=== PATIENT | female | born 1975 | race Caucasian/White ===

== ENCOUNTER 2022-10-25 19:39 | Emergency (ER) | payer BC ==
[~2022-10-25] VITALS: Ht 157.5 cm; Wt 59.0 kg
[2022-10-25 20:09] VITALS: BP_SYST 139
[2022-10-25 20:49] LABS: BILIRUBIN,URINE NEGATIVE (NEGATIVE); BLOOD, URINE TRACE (NEGATIVE); CLARITY/URINE CLEAR (CLEAR); COLOR,URINE YELLOW (YELLOW); GLUCOSE,URINE NEGATIVE (NEGATIVE); KETONES,URINE NEGATIVE (NEGATIVE); LEUKOCYTE ESTERASE ,URINE NEGATIVE (NEGATIVE); NITRITE, URINE NEGATIVE (NEGATIVE); PROTEIN URINE NEGATIVE (NEGATIVE); UROBILINOGEN,URINE 0.2 (0.2-1.0)
[2022-10-25 21:34] VITALS: BP_SYST 122
[2022-10-25 21:45] LABS: BACTERIA,URINE None Seen /HPF (None Seen); RBC,URINE 0-3 /HPF (0-3); WBC,URINE 0-3 /HPF (0-3)
== END 2022-10-25 21:34 | disposition home or self-care (01) ==
LOC: SED 19:39
DX: R51.9 Headache, unspecified (principal)
CPT/HCPCS: 81000; 99283